=== PATIENT | male | born 2000 | race Two or more races ===

== ENCOUNTER 2025-05-21 00:52 | Emergency (ER) | payer SELFPAY ==
[2025-05-21 00:57] VITALS: BP 145/63; PULSE 118; RESP 18; TEMP 36.9; O2SAT 96
[2025-05-21 00:59] VITALS: BMI 32.5
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
== END 2025-05-21 01:20 ==
PROVIDERS: Emergency Provider Emergency Medicine
DX: Z02.89 Encounter for other administrative examinations (principal); Z04.1 Encounter for examination and observation following transport accident
CPT/HCPCS: 99282